=== PATIENT | male | born 1970 | race Caucasian/White ===

== ENCOUNTER 2019-04-29 22:12 | Emergency (ER) | payer OTHER ==
[2019-04-29] MEDS ORDERED: IBUPROFEN 400 MG TAB ONE (22:54)
[2019-04-29] MEDS ORDERED: IBUPROFEN 200 MG TAB PO ONE (22:54)
--- NOTE | 2019-04-29 22:56 | ER ---
Nurse's Notes [facility] Name: Juan Smith Jr Age: 48 yrs Sex: Male : 1970 Arrival Date: 04/29/2019 Time: 22:21 Bed 15 Private MD: Diagnosis: Pain in left wrist Presentation: 04/29 22:30 Presenting complaint: Patient states: Pain to left wrist that began at 1200 today; lp1 Denies any trauma to wrist; Hx of surgery to left wrist 3 years ago; Patient with splint that he applied [employer]. Transition of care: patient was not received from another setting of care. Onset of symptoms was April 29, 2019 at 12:00. Risk Assessment: Do you want to hurt yourself or someone else? Patient reports no desire to harm self or others. Initial Sepsis Screen: Does the patient meet any 2 criteria? No. Patient's initial sepsis screen is negative. Does the patient have a suspected source of infection? No. Patient's initial sepsis screen is negative. Care prior to arrival: None. 22:30 Method Of Arrival: Ambulatory lp1 22:30 Acuity: NIKOS 4 lp1 Triage Assessment: 22:30 General: Appears in no apparent distress. uncomfortable, Behavior is calm, cooperative, rr5 appropriate for age. Historical: - Allergies: 22:33 No Known Allergies; lp1 - Home Meds: 22:33 Unable to obtain [Active]; lp1 - PMHx: 22:33 Hypertension; lp1 - PSHx: 22:33 wrist surgery; lp1 - Immunization history:: Adult Immunizations up to date. - Social history:: Smoking status: Patient/guardian denies using tobacco. - Ebola Screening: : No symptoms or risks identified at this time. - Family history:: not pertinent. Screenin:30 Abuse screen: Denies threats or abuse. Denies injuries from another. Nutritional rr5 screening: No deficits noted. Tuberculosis screening: No symptoms or risk factors identified. Fall Risk None identified. Total Soliman Fall Scale indicates No Risk (0-24 pts). Assessment: 22:30 General: Appears in no apparent distress. uncomfortable, Behavior is calm, cooperative, rr5 appropriate for age. 22:30 Pain: Complains of pain in left wrist Pain does not radiate. Pain currently is 10 out rr5 of 10 on a pain scale. Quality of pain is described as aching, Pain began gradually, Is intermittent. Neuro: Level of Consciousness is awake, alert, obeys commands, Oriented to person, place, time, situation, Appropriate for age. Cardiovascular: Capillary refill < 3 seconds Patient's skin is warm and dry. Respiratory: Airway is patent Respiratory effort is even, unlabored, Respiratory pattern is regular, symmetrical. GI: No signs and/or symptoms were reported involving the gastrointestinal system. : No signs and/or symptoms were reported regarding the genitourinary system. EENT: No signs and/or symptoms were reported regarding the EENT system. Derm: Skin is intact, Skin temperature is warm. Musculoskeletal: Circulation, motion, and sensation intact. Capillary refill < 3 seconds, Reports pain in left wrist. 23:30 Reassessment: Patient appears in no apparent distress at this time. Patient is alert, rr5 oriented x 3, equal unlabored respirations, skin warm/dry/pink. discharge instruction given and explained without complaints made. Patient states feeling better. Patient states symptoms have improved. Vital Signs: 22:33 BP 142 / 95; Pulse 95; Resp 18; Temp 98.1(TE); Pulse Ox 100% on R/A; Weight 99.79 kg; lp1 Height 5 ft. 8 in. (172.72 cm); Pain 10/10; 23:25 BP 132 / 70; Pulse 90; Resp 17; Pulse Ox 99% on R/A; rr5 22:33 Body Mass Index 33.45 (99.79 kg, 172.72 cm) lp1 ED Course: 22:21 Patient arrived in ED. es 22:32 Triage completed. lp1 22:32 Arm band placed on left wrist. lp1 22:38 Richmond Gallegos MD is Attending Physician. mir 22:45 Ice pack to injury. Verbal reassurance given. Pulse ox on. NIBP on. jp3 22:45 Bed in low position. Call light in reach. Side rails up X 1. jp3 22:52 Todd Santillan, SUSAN is Primary Nurse. rr5 22:57 Wrist Left (3 View) XRAY In Process Unspecified. EDMS 23:17 Velcro wrist splint applied to left wrist. jp3 23:30 No provider procedures requiring assistance completed. Patient did not have IV access rr5 during this emergency room visit. Administered Medications: 23:04 Drug: Motrin 600 mg Route: PO; rr5 23:30 Follow up: Response: No adverse reaction rr5 Outcome: 22:55 Discharge ordered by MD. hester 23:30 Discharged to home ambulatory. rr5 23:30 Condition: stable 23:30 Discharge instructions given to patient, Instructed on discharge instructions, follow up and referral plans. medication usage, Demonstrated understanding of instructions, follow-up care, medications, Prescriptions given X 2. 23:33 Patient left the ED. rr5 Signatures: Dispatcher [employer] Richmond Rodriguez MD MD cha Salyer, Edna es Pena, Laura, RN RN lp1 Wally Tee jp3 Todd Santillan, RN RN rr5
--- NOTE | 2019-04-29 22:56 | EDPHYS ---
Physician Documentation [facility] Name: Juan Smith Jr Age: 48 yrs Sex: Male : 1970 Arrival Date: 04/29/2019 Time: 22:21 Bed 15 Private MD: ED Physician Richmond Gallegos HPI: 04/29 22:49 This 48 yrs old Male presents to ER via Ambulatory with complaints of Wrist mir Pain. 22:49 The patient or guardian reports decreased range of motion, pain. The complaints affect mir the left wrist diffusely. Context: The problem was sustained outdoors. Onset: The symptoms/episode began/occurred 3 year(s) ago. Modifying factors: The symptoms are alleviated by elevation, holding still, ice/coldpack to affected area, the symptoms are aggravated by movement. Associated signs and symptoms: The patient has no apparent associated signs or symptoms. The patient has experienced similar episodes in the past, several times. Historical: - Allergies: 22:33 No Known Allergies; lp1 - Home Meds: 22:33 Unable to obtain [Active]; lp1 - PMHx: 22:33 Hypertension; lp1 - PSHx: 22:33 wrist surgery; lp1 - Immunization history:: Adult Immunizations up to date. - Social history:: Smoking status: Patient/guardian denies using tobacco. - Ebola Screening: : No symptoms or risks identified at this time. - Family history:: not pertinent. ROS: 22:49 Constitutional: Negative for fever, chills, and weight loss, Eyes: Negative for injury, mir pain, redness, and discharge, ENT: Negative for injury, pain, and discharge, Neck: Negative for injury, pain, and swelling, Cardiovascular: Negative for chest pain, palpitations, and edema, Respiratory: Negative for shortness of breath, cough, wheezing, and pleuritic chest pain, Abdomen/GI: Negative for abdominal pain, nausea, vomiting, diarrhea, and constipation, Back: Negative for injury and pain, : Negative for injury, bleeding, discharge, and swelling, Skin: Negative for injury, rash, and discoloration, Neuro: Negative for headache, weakness, numbness, tingling, and seizure, Psych: Negative for depression, anxiety, suicide ideation, homicidal ideation, and hallucinations, Allergy/Immunology: Negative for hives, rash, and allergies, Endocrine: Negative for neck swelling, polydipsia, polyuria, polyphagia, and marked weight changes, Hematologic/Lymphatic: Negative for swollen nodes, abnormal bleeding, and unusual bruising. 22:49 MS/extremity: Positive for decreased range of motion, pain, of the left wrist. Exam: 22:49 Constitutional: This is a well developed, well nourished patient who is awake, alert, mir and in no acute distress. Head/Face: Normocephalic, atraumatic. Eyes: Pupils equal round and reactive to light, extra-ocular motions intact. Lids and lashes normal. Conjunctiva and sclera are non-icteric and not injected. Cornea within normal limits. Periorbital areas with no swelling, redness, or edema. ENT: Nares patent. No nasal discharge, no septal abnormalities noted. Tympanic membranes are normal and external auditory canals are clear. Oropharynx with no redness, swelling, or masses, exudates, or evidence of obstruction, uvula midline. Mucous membranes moist. Neck: Trachea midline, no thyromegaly or masses palpated, and no cervical lymphadenopathy. Supple, full range of motion without nuchal rigidity, or vertebral point tenderness. No Meningismus. Chest/axilla: Normal chest wall appearance and motion. Nontender with no deformity. No lesions are appreciated. Cardiovascular: Regular rate and rhythm with a normal S1 and S2. No gallops, murmurs, or rubs. Normal PMI, no JVD. No pulse deficits. Respiratory: Lungs have equal breath sounds bilaterally, clear to auscultation and percussion. No rales, rhonchi or wheezes noted. No increased work of breathing, no retractions or nasal flaring. Abdomen/GI: Soft, non-tender, with normal bowel sounds. No distension or tympany. No guarding or rebound. No evidence of tenderness throughout. Back: No spinal tenderness. No costovertebral tenderness. Full range of motion. Skin: Warm, dry with normal turgor. Normal color with no rashes, no lesions, and no evidence of cellulitis. Neuro: Awake and alert, GCS 15, oriented to person, place, time, and situation. Cranial nerves II-XII grossly intact. Motor strength 5/5 in all extremities. Sensory grossly intact. Cerebellar exam normal. Normal gait. Psych: Awake, alert, with orientation to person, place and time. Behavior, mood, and affect are within normal limits. 22:49 Musculoskeletal/extremity: Extremities: grossly normal except: noted in the dorsal aspect of left wrist and palmar aspect of left wrist: decreased ROM, pain. Vital Signs: 22:33 BP 142 / 95; Pulse 95; Resp 18; Temp 98.1(TE); Pulse Ox 100% on R/A; Weight 99.79 kg; lp1 Height 5 ft. 8 in. (172.72 cm); Pain 10/10; 23:25 BP 132 / 70; Pulse 90; Resp 17; Pulse Ox 99% on R/A; rr5 22:33 Body Mass Index 33.45 (99.79 kg, 172.72 cm) lp1 MDM: 22:38 Patient medically screened. [facility] 22:49 Data reviewed: vital signs, nurses notes, radiologic studies, plain films. [facility] 04/29 22:49 Order name: Wrist Left (3 View) XRAY [facility] 04/29 22:49 Order name: Splint - Wrist: cock up; Complete Time: 23:16 [facility] 04/29 22:49 Order name: Ice pack; Complete Time: 23:16 [facility] Administered Medications: 23:04 Drug: Motrin 600 mg Route: PO; rr5 23:30 Follow up: Response: No adverse reaction rr5 Disposition: 04/29/19 22:55 Discharged to Home. Impression: Pain in left wrist. - Condition is Stable. - Discharge Instructions: Musculoskeletal Pain, Wrist Pain, Wrist Pain, [id number]. - Prescriptions for Ibuprofen 600 mg Oral Tablet - take 1 tablet by ORAL route every 6 hours As needed take with food; 21 tablet. Tylenol- Codeine #3 300-30 mg Oral Tablet - take 2 tablets by ORAL route every 6 hours As needed; 20 tablet. - Medication Reconciliation Form, Thank You Letter, Antibiotic Education, Prescription Opioid Use form. - Follow up: Private Physician; When: 2 - 3 days; Reason: Recheck today's complaints, Continuance of care, Re-evaluation by your physician. - Problem is new. - Symptoms have improved. Signatures: Dispatcher [employer] Richmond Rodriguez MD MD cha Pena, Laura RN RN lp1 Todd Santillan RN RN rr5 Corrections: (The following items were deleted from the chart) 23:33 22:55 04/29/2019 22:55 Discharged to Home. Impression: Pain in left wrist. Condition is rr5 Stable. Forms are Medication Reconciliation Form, Thank You Letter, Antibiotic Education, Prescription Opioid Use. Follow up: Private Physician; When: 2 - 3 days; Reason: Recheck today's complaints, Continuance of care, Re-evaluation by your physician. Problem is new. Symptoms have improved. mir
--- NOTE | 2019-04-30 12:42 | RAD REPORT ---
EXAM DESCRIPTION: RAD - Wrist Left 3 View - 04/29/2019 10:59 pm CLINICAL HISTORY: Nontraumatic left wrist pain, history of wrist surgery 3 years earlier COMPARISON: None. FINDINGS: No fractures identified. No dislocation or periosteal reaction. Postsurgical changes are n oted at the wrist. Hardware is present fusing the lunate to the hamate bone. There is a lucency aroun d the stems of the fixation hardware. Bony union appears to be complete but this is not definitive. T he lucency around the fixation stems could indicate there may be some motion in an incomplete bony un ion. Scaphoid appears to be resected. Small bony densities are present at the scaphoid surgical bed. Degenerative changes are mild. No foreign body or other soft tissue abnormality. IMPRESSION: No fracture or acute finding seen. Postsurgical changes are present as detailed. An acute finding is not suspected. There is no comparis on available. The lucency around the fixation hardware stems could indicate some degree of motion. It is possible the patient has an incomplete or fibrous union across the lunate -hamate junction.
== END 2019-04-29 23:33 | disposition home or self-care (01) ==
LOC: ER 22:12
DX: M25.532 Pain in left wrist (principal); I10 Essential (primary) hypertension
CPT/HCPCS: 99284

== ENCOUNTER 2021-05-12 19:54 | Inpatient (IN) | payer OTHER ==
--- OUTSIDE RECORDS SUMMARY | 2021-05-12 19:57 | XMS REPORT | Continuity of Care Document ---
:1970 Author Organization [facility] t Address [address] [place] [address] Care Team Providers Name Role Phone Linsey NIKE ATHLETE Primary Care Physician Gabi NIKE ATHLETE Attending Clinician Payers Payer Name Policy Type Policy Number Effective Date Expiration Date S ciro [employer] OF [id number] 2016 Universit y of [id number]/ 00:00:00 [facility] edical [id number]/2015-[id number] Branch [phone] [place] [id number] [facility] [id number] 2020 Univers ity of - MANAGED 00:00:00 [place] [facility] MEDICAREWELLMED/U Branch HC DUAL COMP HMO D [id number]/09/28 021-PresentMedica re Adv HMO Problems Condition Condition Condition Status Onset Resolution Last Treating Co mments Source Name Details Category Date Date Treatment Clinician Date Essential Essential Disease Active Uni vers hypertensi hypertensi 4-27 it y of on on 00:00: [place] 00 Medical Branch Gastroesop Gastroesop Disease Active U nivers hageal hageal 4-27 ity of reflux reflux 00:00: [place] disease disease 00 Medical without without Branch esophagiti esophagiti s s Decreased Decreased Disease Active Uni vers range of range of 9-11 [place] motion of motion of [place] wrist 00 [place] [facility] Stiffness Stiffness Disease Active Uni vers of finger of finger 9-11 ity of joint of joint of 00:00: [place] left hand left hand 00 Medi peña Branch Swelling Swelling Disease Active Unive rs of left of left 06-07 ity of hand hand 00:00: Medical Branch Pain in Pain in Disease Active Univers left wrist left wrist 06-07 it y of 00:00: [facility] Branch Obesity Obesity Disease Active Univers (BMI (BMI 7-04 ity of 30-39.9) 30-39.9) 00:00: Medical Branch Allergies, Adverse Reactions, Alerts This patient has no known allergies or adverse reactions. Social History Social Habit Start Date Stop Date Quantity Comments Source Exposure to Not sure [facility] SARS-CoV-2 (event) [facility] Cigarettes smoked 2021-01-21 2021-01-21 Univers ity of current (pack per 00:00:00 00:00:00 [place] ) - Reported Branch Tobacco use and 2021-01-21 2021-01-21 Former user Universi ty of exposure 00:00:00 00:00:00 [facility] Alcohol intake 2021-01-21 2021-01-21 Ex-drinker [facility] 00:00:00 00:00:00 (finding) [facility] History of tobacco 2016-03-08 User of Univer sity of use 00:00:00 smokeless [facility] [place] tobacco Mobile Sex Ass[birth year] At [birth year] Universit y of 00:00:00 00:00:00 [facility] Smoking Status Start Date Stop Date Source Former smoker 2021-01-21 00:00:00 2021-01-21 00:00:00 Universi ty of [facility] Medications Ordered Filled Start Stop Current Ordering Indication Dosage Frequency Signature Comments Components Source Medication Medication Date Date Medication? Clinician (SIG) Name Name amLODIPine Yes Essential 2.5mg Take 1 Univers 2.5 mg 01-30 hypertensio tablet by i ty of tablet 00:00: n mouth 00 daily. Medical Branch pantoprazol Yes Gastroesoph 40mg Take 1 Univers e 40 mg EC 01-30 ageal tablet by ity of tablet 00:00: reflux mouth 00 disease daily. Medical without Branch esophagitis valsartan Yes Essential 320mg Take 1 Univers 320 mg 01-30 hypertensio tablet by i ty of tablet 00:00: n mouth [place] 00 daily. Medical Branch amLODIPine Yes Essential 2.5mg Take 1 Univers 2.5 mg 5- hypertensio tablet by i ty of tablet 00:00: n mouth [place] 00 daily. Medical Branch pantoprazol Yes Gastroesoph 40mg Take 1 Univers e 40 mg EC - ageal tablet by ity of tablet 00:00: reflux mouth [place] 00 disease daily. Medical without Branch esophagitis valsartan Yes Essential 320mg Take 1 Univers 320 mg 5- hypertensio tablet by i ty of tablet 00:00: n mouth [place] 00 daily. Medical Branch amLODIPine 2020- No Essential 2.5mg Take 1 Univers 2.5 mg 01-23- hypertensio tablet by ity of tablet 00:00: 00:00 n mouth [place] 00 :00 daily. Medical Branch pantoprazol 2020- No Gastroesoph 40mg Take 1 Univers e 40 mg EC 01-23 ageal tablet by it y of tablet 00:00: 00:00 reflux mouth [place] 00 :00 disease daily. Medical without Branch esophagitis valsartan 2020- No Essential 320mg Take 1 Univers 320 mg 01-23- hypertensio tablet by ity of tablet 00:00: 00:00 n mouth [place] 00 :00 daily. Medical Branch amLODIPine 2020- No Essential 2.5mg Take 1 Univers 2.5 mg 01-23- hypertensio tablet by ity of tablet 00:00: 00:00 n mouth [place] 00 :00 daily. Medical Branch pantoprazol 2020- No Gastroesoph 40mg Take 1 Univers e 40 mg EC 01-23- ageal tablet by it y of tablet 00:00: 00:00 reflux mouth [place] 00 :00 disease daily. Medical without Branch esophagitis valsartan 2020- No Essential 320mg Take 1 Univers 320 mg 01-23- hypertensio tablet by ity of tablet 00:00: 00:00 n mouth [place] 00 :00 daily. Medical Branch PREVIDENT Yes Univers 5000 PLUS 4- ity of 1.1 % Crea 00:00: [place] 00 Medical Branch PREVIDENT Yes Univers 5000 PLUS 4-02 ity of 1.1 % Crea 00:00: [place] 00 Medical Branch Immunizations Ordered Filled Immunization Date Status Comments [facility] e Immunization Name Name TDAP 2020-02-26 Completed University of 00:00:00 [place] [facility] TDAP 2020-02-26 Completed University of 00:00:00 [place] [facility] Procedures This patient has no known procedures. Plan of Care Planned Activity Planned Date Details Comments Source Future Scheduled 2030-02-25 DTaP,Tdap,and Td [facility] [place] Test 00:00:00 Vaccines (2 - Td) Medical Br anch [code = DTaP,Tdap,and Td Vaccines (2 - Td)] Future Scheduled 2030-02-25 DTaP,Tdap,and Td [facility] [place] Test 00:00:00 Vaccines (2 - Td) Medical Br anch [code = DTaP,Tdap,and Td Vaccines (2 - Td)] Future Scheduled 2022 Screening for [facility] Test 00:00:00 malignant neoplasm Medical B ranch of colon (procedure) [code = 825388977] Future Scheduled 2022 Screening for [facility] Test 00:00:00 malignant neoplasm Medical B ranch of colon (procedure) [code = [id number]] Future Scheduled 2022-01-21 Depression screening [facility] [place] Test 00:00:00 (procedure) [code = Medical Branch [id number]] Future Scheduled 2022-01-21 Depression screening Uni versity [facility] Test 00:00:00 (procedure) [code = Medical Branch [id number]] Future Scheduled 2021-05-28 INFLUENZA VACCINE [facility] [place] Test 00:00:00 (Season Ended) [code Medical Branch = INFLUENZA VACCINE (Season Ended)] Future Scheduled 2021-05-28 INFLUENZA VACCINE [facility] [place] Test 00:00:00 (Season Ended) [code Medical Branch = INFLUENZA VACCINE (Season Ended)] Future Scheduled 1990 Hepatitis C [facility] Test 00:00:00 screening Medical Branch (procedure) [code = [id number]] Future Scheduled 1990 Hepatitis C [facility] Test 00:00:00 screening Medical Branch (procedure) [code = [id number]] Future Scheduled 1988 SARS-CoV-2 [facility] Test 00:00:00 (COVID-19) Vaccine Medical B ranch (1) [code = SARS-CoV-2 (COVID-19) Vaccine (1)] Future Scheduled 1988 SARS-CoV-2 [facility] Test 00:00:00 (COVID-19) Vaccine Medical B ranch (1) [code = SARS-CoV-2 (COVID-19) Vaccine (1)] Encounters Start End Encounter Admission Attending Care Care Encounter Source Date/Time Date/Time Type Type Clinicians Facility Department ID 2021-01-30 2021-01-30 [facility] [id number] 00:00:00 00:00:00 [facility] [id number] [place] [phone] [address] [address] Results This patient has no known results.
[2021-05-12 21:06] LABS: Absolute Lymphocytes (CBC) 1.4 K/uL (0.7-4.9); Basophils % 0.5 % (0-1.3); Hematocrit 47.8 % (39.6-49.0); Lymphocytes % 8.8 % (15.3-44.8); MPV 9.7 fL (7.6-11.3); RBC Red Blood Cell Count 5.09 M/uL (4.33-5.43)
[2021-05-12] MEDS ORDERED: ONDANSETRON 4 MG (ODT) TAB ONE (21:12)
[2021-05-12 21:29] LABS: Albumin 3.9 g/dL (3.4-5.0); Bilirubin Direct 0.3 mg/dL (0-0.2); Bilirubin Total 1.3 mg/dL (0.2-1.0); Protein, Total 8.1 g/dL (6.4-8.2)
--- NOTE | 2021-05-12 22:02 | RAD REPORT ---
EXAM DESCRIPTION: CT - Abdomen Pelvis W Contrast - 05/12/2021 9:50 pm CLINICAL HISTORY: ABD PAIN COMPARISON: No comparisons TECHNIQUE: Biphasic, helical CT imaging of the abdomen and pelvis was performed following 100 ml non -ionic IV contrast. No oral contrast administered. All CT scans are performed using dose optimization technique as appropriate and may include automated exposure control or mA/KV adjustment according to patient size. FINDINGS: No suspicious findings in the lung bases. The liver, spleen, and pancreas show no focal findings. Mild diffuse fatty infiltration of the liver is present. No portal vein abnormality. No biliary tree dilatation. Gallbladder is distended. There a re numerous gallstones present. Gallbladder wall appears thickened and edematous. Trace amount of per icholecystic fluid is seen. Symmetric renal function is seen with no hydronephrosis or suspicious renal mass. No pyelonephritis o r acute parenchymal process. Bladder is contracted limiting assessment. No adrenal abnormalities. No dilated bowel loops or bowel wall thickening. Appendix is normal. No active GI process seen. No fr ee air, free fluid or inflammatory stranding. No mass or bulky lymphadenopathy. Fat extends into the origin of each inguinal canal. No suspicious bony findings. IMPRESSION: Multi stone cholelithiasis within a distended but nondilated gallbladder. Gallbladder wa ll edema and trace pericholecystic are present. No biliary tree abnormality. Mild diffuse fatty infiltration of the liver.
[2021-05-12 23:08] LABS: Urine Blood Trace-intact (Negative); Urine Glucose Negative (Negative); Urine Protein 1+ (Negative); Urine Specific Gravity >=1.030 (1.005-1.030); Urine pH 5.5 (5.0-7.0)
[2021-05-12] MEDS ORDERED: MORPHINE 4 MG/ML SYR ONE (23:41)
--- NOTE | 2021-05-13 00:37 | EDPHYS ---
Physician Documentation [facility] Name: Juan Smith Jr Age: 50 yrs Sex: Male : 1970 Arrival Date: 05/12/2021 Time: 20:01 Bed 18 Private MD: ED Physician Richmond Gallegos HPI: 05/12 23:32 This 50 yrs old Male presents to ER via Wheelchair with complaints of mir Abdominal Pain, Vomiting. 23:32 The patient presents to the emergency department with nausea, vomiting, that is mir intermittent. Onset: The symptoms/episode began/occurred yesterday. Historical: - Allergies: 20:43 No Known Allergies; bb - Home Meds: 20:43 pantoprazole 40 mg oral TbEC 1 tab once daily [Active]; amlodipine 2.5 mg tab 1 tab bb once daily [Active]; valsartan 320 mg oral tab 1 tab once daily [Active]; - PMHx: 20:43 Hypertension; GERD; bb - Immunization history:: Adult Immunizations up to date, Client reports having NOT received the Covid vaccine. - Social history:: Smoking status: Reported history of juuling and/or vaping. ROS: 23:33 Constitutional: Negative for fever, chills, and weight loss, Eyes: Negative for injury, mir pain, redness, and discharge, ENT: Negative for injury, pain, and discharge, Neck: Negative for injury, pain, and swelling, Cardiovascular: Negative for chest pain, palpitations, and edema, Respiratory: Negative for shortness of breath, cough, wheezing, and pleuritic chest pain, Back: Negative for injury and pain, : Negative for injury, bleeding, discharge, and swelling, MS/Extremity: Negative for injury and deformity, Skin: Negative for injury, rash, and discoloration, Neuro: Negative for headache, weakness, numbness, tingling, and seizure, Psych: Negative for depression, anxiety, suicide ideation, homicidal ideation, and hallucinations, Allergy/Immunology: Negative for hives, rash, and allergies, Endocrine: Negative for neck swelling, polydipsia, polyuria, polyphagia, and marked weight changes, Hematologic/Lymphatic: Negative for swollen nodes, abnormal bleeding, and unusual bruising. 23:33 Abdomen/GI: Positive for abdominal pain, nausea and vomiting, of the right upper quadrant and left upper quadrant. Exam: 23:33 Constitutional: This is a well developed, well nourished patient who is awake, alert, mir and in no acute distress. Head/Face: Normocephalic, atraumatic. Eyes: Pupils equal round and reactive to light, extra-ocular motions intact. Lids and lashes normal. Conjunctiva and sclera are non-icteric and not injected. Cornea within normal limits. Periorbital areas with no swelling, redness, or edema. ENT: Nares patent. No nasal discharge, no septal abnormalities noted. Tympanic membranes are normal and external auditory canals are clear. Oropharynx with no redness, swelling, or masses, exudates, or evidence of obstruction, uvula midline. Mucous membranes moist. Neck: Trachea midline, no thyromegaly or masses palpated, and no cervical lymphadenopathy. Supple, full range of motion without nuchal rigidity, or vertebral point tenderness. No Meningismus. Chest/axilla: Normal chest wall appearance and motion. Nontender with no deformity. No lesions are appreciated. Cardiovascular: Regular rate and rhythm with a normal S1 and S2. No gallops, murmurs, or rubs. Normal PMI, no JVD. No pulse deficits. Respiratory: Lungs have equal breath sounds bilaterally, clear to auscultation and percussion. No rales, rhonchi or wheezes noted. No increased work of breathing, no retractions or nasal flaring. Back: No spinal tenderness. No costovertebral tenderness. Full range of motion. Male : Normal genitalia with no discharge or lesions. Skin: Warm, dry with normal turgor. Normal color with no rashes, no lesions, and no evidence of cellulitis. MS/ Extremity: Pulses equal, no cyanosis. Neurovascular intact. Full, normal range of motion. Neuro: Awake and alert, GCS 15, oriented to person, place, time, and situation. Cranial nerves II-XII grossly intact. Motor strength 5/5 in all extremities. Sensory grossly intact. Cerebellar exam normal. Normal gait. Psych: Awake, alert, with orientation to person, place and time. Behavior, mood, and affect are within normal limits. 23:33 Abdomen/GI: Inspection: distension, that is mild, Bowel sounds: normal, Palpation: moderate abdominal tenderness, in the right upper quadrant and left upper quadrant, Liver: no appreciated palpable abnormalities, Hernia: not appreciated. Vital Signs: 20:39 BP 123 / 86; Pulse 100; Resp 18 S; Temp 97.9(O); Pulse Ox 97% on R/A; Weight 90.72 kg bb (R); Height 5 ft. 8 in. (172.72 cm) (R); Pain 10/10; 05/13 01:32 BP 141 / 94; Pulse 84; Resp 18; Temp 98.2; Pulse Ox 96% ; Pain 6/10; ms4 05/12 20:39 Body Mass Index 30.41 (90.72 kg, 172.72 cm) bb MDM: 05/12 23:19 Patient medically screened. [facility] 23:34 Data reviewed: vital signs, nurses notes, lab test result(s), EKG, radiologic studies, [facility] CT scan, plain films. 05/12 20:45 Order name: Basic Metabolic Panel; Complete Time: 21:31 05/12 20:45 Order name: CBC with Diff; Complete Time: 21:11 05/12 20:45 Order name: Hepatic Function; Complete Time: 21:31 05/12 20:45 Order name: Lipase; Complete Time: 21:31 05/12 23:08 Order name: Urine Dipstick-Ancillary; Complete Time: 23:31 [facility] 05/12 23:39 Order name: COVID-19 : Document "Date of Symptom Onset" if Symptomatic. [facility] 05/12 21:11 Order name: CT Abd/Pelvis - IV Contrast Only kb 05/13 02:24 Order name: SARS-COV-2 RT PCR [facility] 05/13 05:08 Order name: CBC with Automated Diff [facility] 05/13 05:15 Order name: Comprehensive Metabolic Panel [facility] 05/13 05:33 Order name: Manual Differential [facility] 05/14 03:02 Order name: CBC with Automated Diff [facility] 05/14 03:17 Order name: Comprehensive Metabolic Panel [facility] 05/12 20:45 Order name: IV Saline Lock; Complete Time: 21:34 05/12 20:45 Order name: Labs collected and sent; Complete Time: 21:34 05/12 22:04 Order name: CT; Complete Time: 22:05 [facility] 05/12 22:36 Order name: US Abdomen Limited mw2 05/13 08:27 Order name: MRI EDMS Administered Medications: 20:54 Drug: Zofran (Ondansetron) 4 mg Route: PO; bb 23:10 Follow up: Response: No adverse reaction bb 23:21 Drug: morphine 4 mg Route: IVP; Site: right antecubital; bb 05/13 01:31 Follow up: Response: No adverse reaction ms4 00:36 Drug: Zosyn (piperacillin-tazobactam) 3.375 grams Route: IVPB; Infused Over: 60 mins; ms4 Site: right antecubital; 00:53 Drug: morphine 4 mg Route: IVP; Site: left antecubital; ms4 01:31 Follow up: Response: No adverse reaction ms4 01:30 Drug: Pepcid (famotidine) 20 mg Route: IVP; Site: left antecubital; ms4 01:30 Follow up: Response: No adverse reaction ms4 Disposition Summary: 05/13/21 00:36 Hospitalization Ordered Hospitalization Status: Inpatient Admission mir Provider: Liu Marquez imr Condition: Stable mir Problem: new mir Symptoms: have improved mir Bed/Room Type: Standard mir Location: Telemetry/MedSurg (Inpatient)(05/14/21 10:27) dw Room Assignment: 213(05/14/21 10:27) dw Diagnosis - Abdominal tenderness mir - Elevated white blood cell count mir - Acute cholecystitis mir - Other cholelithiasis with obstruction mir Forms: - Medication Reconciliation Form mir - SBAR form mir Signatures: Dispatcher [employer] EDNC Destinee Duenas FNP-C FNP-Ckb Webb, Martha, RN RN mw Woody, Diana, RN RN dw Anderson, Corey, MD MD cha Ballard, Brenda, RN RN Adrienne Romo RN RN ms4 Corrections: (The following items were deleted from the chart) 01:27 05/12 23:39 CORONAVIRUS ordered. EDNC EDNC 05/13 02:36 00:36 Telemetry/MedSurg (Inpatient) [facility] 02:36 00:36 mir 05/14 10:27 05/13 02:36 BR ER HOLD [facility] 05/14 10:27 05/13 02:36 ERHOLD- [facility]
--- NOTE | 2021-05-13 00:37 | ER ---
Nurse's Notes [facility] Name: Juan Smith Jr Age: 50 yrs Sex: Male : 1970 Arrival Date: 05/12/2021 Time: 20:01 Bed 18 Private MD: Diagnosis: Abdominal tenderness;Elevated white blood cell count;Acute cholecystitis;Other cholelithiasis with obstruction Presentation: 05/12 20:39 Chief complaint: Patient states: he started vomiting last night and today also having bb abdominal pain and back pain. Coronavirus screen: At this time, the client does not indicate any symptoms associated with coronavirus-19. Ebola Screen: No symptoms or risks identified at this time. Initial Sepsis Screen: Does the patient meet any 2 criteria? No. Patient's initial sepsis screen is negative. Does the patient have a suspected source of infection? No. Patient's initial sepsis screen is negative. Risk Assessment: Do you want to hurt yourself or someone else? Patient reports no desire to harm self or others. Onset of symptoms was May 11, 2021. 20:39 Method Of Arrival: Wheelchair bb 20:39 Acuity: NIKOS 3 bb Triage Assessment: 20:43 General: Appears in no apparent distress. uncomfortable, Behavior is calm, cooperative. bb Pain: Complains of pain in abdomen Pain currently is 10 out of 10 on a pain scale. Neuro: Level of Consciousness is awake, alert, obeys commands, Oriented to person, place, time, situation. Cardiovascular: Capillary refill < 3 seconds Patient's skin is warm and dry. Respiratory: Airway is patent Respiratory effort is even, unlabored, Respiratory pattern is regular. GI: Abdomen is round Reports lower abdominal pain, vomiting. Derm: Skin is pink, warm \T\ dry. Musculoskeletal: Circulation, motion, and sensation intact. Historical: - Allergies: 20:43 No Known Allergies; bb - Home Meds: 20:43 pantoprazole 40 mg oral TbEC 1 tab once daily [Active]; amlodipine 2.5 mg tab 1 tab bb once daily [Active]; valsartan 320 mg oral tab 1 tab once daily [Active]; - PMHx: 20:43 Hypertension; GERD; bb - Immunization history:: Adult Immunizations up to date, Client reports having NOT received the Covid vaccine. - Social history:: Smoking status: Reported history of juuling and/or vaping. Screenin/17 01:32 Abuse screen: Denies threats or abuse. Denies injuries from another. Nutritional ms4 screening: No deficits noted. Tuberculosis screening: No symptoms or risk factors identified. Fall Risk None identified. Assessment: 01:31 Pain: Complains of pain in abdomen. Neuro: No deficits noted. Cardiovascular: No ms4 deficits noted. Respiratory: No deficits noted. GI: Reports upper abdominal pain, nausea, vomiting. Vital Signs: 05/12 20:39 BP 123 / 86; Pulse 100; Resp 18 S; Temp 97.9(O); Pulse Ox 97% on R/A; Weight 90.72 kg bb (R); Height 5 ft. 8 in. (172.72 cm) (R); Pain 10/10; 05/13 01:32 BP 141 / 94; Pulse 84; Resp 18; Temp 98.2; Pulse Ox 96% ; Pain 6/10; ms4 05/12 20:39 Body Mass Index 30.41 (90.72 kg, 172.72 cm) bb ED Course: 05/12 20:01 Patient arrived in ED. bp1 20:10 Destinee Duenas FNP-C [facility] kb 20:10 Richmond Gallegos MD is Attending Physician. kb 20:43 Triage completed. bb 20:43 Arm band placed on Patient placed in waiting room, Patient notified of wait time. Labs bb ordered per protocol. Family accompanied patient. 22:52 US Abdomen Limited In Process Unspecified. EDMS 23:19 Richmond Gallegos MD is Attending Physician. [facility] 05/13 00:35 Liu Marquez DO is Hospitalizing Provider. [facility] 05/14 03:27 Christiana Carnes, SUSAN is Primary Nurse. bs2 Administered Medications: 05/12 20:54 Drug: Zofran (Ondansetron) 4 mg Route: PO; bb 23:10 Follow up: Response: No adverse reaction bb 23:21 Drug: morphine 4 mg Route: IVP; Site: right antecubital; bb 05/13 01:31 Follow up: Response: No adverse reaction ms4 00:36 Drug: Zosyn (piperacillin-tazobactam) 3.375 grams Route: IVPB; Infused Over: 60 mins; ms4 Site: right antecubital; 00:53 Drug: morphine 4 mg Route: IVP; Site: left antecubital; ms4 01:31 Follow up: Response: No adverse reaction ms4 01:30 Drug: Pepcid (famotidine) 20 mg Route: IVP; Site: left antecubital; ms4 01:30 Follow up: Response: No adverse reaction ms4 Outcome: 00:36 Decision to Hospitalize by Provider. mir 05/14 11:06 Patient left the ED. tr6 Signatures: Dispatcher [employer] EDDestinee Begum, CHLOE-C BEAMING MACHINE OPERATOR-Richmond Kramer MD MD cha Ballard, Brenda RN RN bb Shira Rosas Tiffany, RN RN tr6 Christiana Carnes RN RN bs2 Adrienne Coulter RN RN ms4
[2021-05-13] MEDS ORDERED: NA CHLORIDE 0.9% 100 ML ONE (00:44)
[2021-05-13] MEDS ORDERED: MORPHINE 4 MG/ML SYR ONE (00:44)
[2021-05-13] MEDS ORDERED: PIPERACIL/TAZO 3.375 GM VIAL IV ONE (00:44)
[2021-05-13] MEDS ORDERED: FAMOTIDINE 20 MG/2 ML VIAL IV ONE (01:14)
--- NOTE | 2021-05-13 01:29 | P.HP ---
Certification for Inpatient Patient admitted to: Observation With expected LOS: <2 Midnights Patient will require the following post-hospital care: None Practitioner: I am a practitioner with admitting privileges, knowledge of patient current condition, hospital course, and medical plan of care. Services: Services provided to patient in accordance with Admission requirements found in Title 42 Section 412.3 of the Code of Federal Regulations <Abhijeet García - Last Filed: 05/13/21 01:27> Patient History Date of Service: 05/13/21 Reason for admission: Acute cholecystitis History of Present Illness: 50-year-old male with history of hypertension, GERD presents emergency [place] for abdominal pain. Patient reports pain started this morning, patient evaluated the emergency department lab significant for white blood cell count 16 GFR 75 glucose [address] abdomen pelvis with multistone cholelithiasis with distended but nondilated gallbladder, gallbladder wall edema and trace pericholecystic fluid present. Ultrasound confirms this but as CBD dilatation. Case was discussed with general surgery who recommends n.p.o., antibiotics, MRCP in the morning. - Past Medical/Surgical History -: Hypertension -: GERD -: Left wrist surgery Psychosocial/ Personal History: Disabled, lives with a friend - Family History Family History: Reviewed- Non-Contributory - Social History Smoking Status: Never smoker Alcohol use: No CD- Drugs: No Caffeine use: Yes Place of Residence: Home <Abhijeet García - Last Filed: 05/13/21 01:27> Date of Service: 05/13/21 <Todd Casey - Last Filed: 05/13/21 14:53> Allergies No Known Allergies Allergy (Unverified 06/23/16 22:36) Review of Systems 10-point ROS is otherwise unremarkable Gastrointestinal: Nausea, Abdominal Pain <Abhijeet García - Last Filed: 05/13/21 01:27> Physical Examination - Physical Exam General: Alert, In no apparent distress, Oriented x3 HEENT: Atraumatic, PERRLA, Mucous membr. moist/pink, EOMI, Sclerae nonicteric Neck: Supple, 2+ carotid pulse no bruit, No LAD, Without JVD or thyroid abnormality Respiratory: Clear to auscultation bilaterally, Normal air movement Cardiovascular: Regular rate/rhythm, Normal S1 S2 Gastrointestinal: Normal bowel sounds, Tenderness (Mild epigastric tenderness) Musculoskeletal: No tenderness Integumentary: No rashes Neurological: Normal gait, Normal speech, Normal strength at 5/5 x4 extr, Normal tone, Normal affect Lymphatics: No axilla or inguinal lymphadenopathy - Studies Laboratory Data (last 24 hrs) 05/12/21 20:50: WBC 16.00 H, Hgb 16.2, Hct 47.8, Plt Count 253 05/12/21 20:50: Sodium 139, Potassium 4.0, BUN 17, Creatinine 1.05, Glucose 136 H, Total Bilirubin 1.3 H, AST 20, ALT 40, Alkaline Phosphatase 104, Lipase 60 L <Abhijeet García - Last Filed: 05/13/21 01:27> - Studies Laboratory Data (last 24 hrs) 05/13/21 04:49: Sodium 140, Potassium 4.2, BUN 16, Creatinine 0.94, Glucose 131 H, Total Bilirubin 1.3 H, AST 64 H, ALT 74, Alkaline Phosphatase 102 05/13/21 04:49: WBC 16.70 H, Hgb 15.5, Hct 45.1, Plt Count 220 05/12/21 20:50: WBC 16.00 H, Hgb 16.2, Hct 47.8, Plt Count 253 05/12/21 20:50: Sodium 139, Potassium 4.0, BUN 17, Creatinine 1.05, Glucose 136 H, Total Bilirubin 1.3 H, AST 20, ALT 40, Alkaline Phosphatase 104, Lipase 60 L <Todd Casey - Last Filed: 05/13/21 14:53> Assessment and Plan - Plan Assessment: Acute cholecystitis with dilated CBD Hypertension GERD Plan: Acute cholecystitis with dilated CBD: N.p.o., IV Zosyn, MRCP, general surgery consult. As needed pain medications/antiemetics. Appreciate further input from general surgery. Hypertension: We will need to hold medications as patient is n.p.o. at this time, will continue after this. GERD: IV Protonix. DVT PPX: SCD Code status: Full Discharge Plan: Home Plan to discharge in: 24 Hours - Advance Directives Does patient have a Living Will: No Does patient have a Durable POA for Healthcare: No - Code Status/Comfort Care Code Status Assessed: Yes (Full code) Critical Care: No Time Spent Managing Pts Care (In Minutes): 55 <Abhijeet García - Last Filed: 05/13/21 01:27> - Plan Plan of care reviewed as noted above. Agree with plan Patient seen and examined this morning. Continues with some pain in his abdomen, mild nausea. Morphine helps temporarily. General surgery consulted. MRCP done. Planned for OR tomorrow, no OR time today unfortunately <Todd Casey - Last Filed: 05/13/21 14:53>
[2021-05-13] MEDS ORDERED: SODIUM CHLORIDE 0.9% 10ML INJ IV PRN (02:26)
[2021-05-13] MEDS: NA CHLORIDE 0.9% 1,000 ML IV SCH ×3 (02:26→22:26)
[2021-05-13] MEDS: MORPHINE 2 MG/ML SYR IV PRN ×3 (03:11→12:34)
[2021-05-13] MEDS ORDERED: NA CHLORIDE 0.9% 1,000 ML ONE ×3 (03:23→23:44)
[2021-05-13] MEDS ORDERED: MORPHINE 2 MG/ML SYR ONE ×3 (03:23→12:54)
[2021-05-13 03:46] VITALS: BMI 28.5
[2021-05-13 05:01] LABS: Absolute Lymphocytes (CBC) 1.2 K/uL (0.7-4.9); Basophils % 0.6 % (0-1.3); Hematocrit 45.1 % (39.6-49.0); Lymphocytes % 6.9 % (15.3-44.8); MPV 9.7 fL (7.6-11.3); RBC Red Blood Cell Count 4.82 M/uL (4.33-5.43)
[2021-05-13 05:15] LABS: Albumin 3.7 g/dL (3.4-5.0); Bilirubin Total 1.3 mg/dL (0.2-1.0); Potassium 4.2 mmol/L (3.5-5.1); Protein, Total 7.9 g/dL (6.4-8.2)
[2021-05-13 05:33] LABS: Blood Morphology Comment NOT SEEN (NOT SEEN); Platelet Estimate ADEQ
[2021-05-13] MEDS: PANTOPRAZOLE 40 MG INJ IVP SCH (07:30)
[2021-05-13] MEDS ORDERED: PANTOPRAZOLE 40 MG INJ ONE (08:06)
[2021-05-13] MEDS ORDERED: PIPER/TAZO/NS 3.375gm 3.375 GM/100 ML BAG ONE ×2 (08:06→10:19)
--- NOTE | 2021-05-13 08:26 | RAD REPORT ---
EXAM DESCRIPTION: MRI - Cholangiogram - 05/13/2021 8:14 am CLINICAL HISTORY: Cholecystitis, Dilated CBD COMPARISON: Abdomen Exam Limited dated 05/12/2021 FINDINGS: Three-dimensional MRCP was performed using maximum intensity projection reconstruction on the same work station. No intrahepatic biliary tree dilatation is seen. The common bile duct is normal caliber without evide nce of retained stone, stricture or mass. The pancreatic duct is not pathologically dilated. Multiple stones are present in the gallbladder which appears distended. Mild pericholecystic fluid. Limited T2 sequences through the abdomen demonstrates no bulky adenopathy, significant free fluid or abscess. IMPRESSION: Cholelithiasis is seen with distended gallbladder and mild pericholecystic fluid suspici ous for acute cholecystitis. Common bile duct is normal caliber. No common duct stone seen.
[2021-05-13] MEDS: ONDANSETRON 4 MG/2 ML VIAL IV PRN ×2 (08:32→16:38)
[2021-05-13] MEDS ORDERED: BUPIVACAINE 0.5% PF 10 ML VIAL ONE (08:43)
--- NOTE | 2021-05-13 08:45 | RAD REPORT ---
EXAM DESCRIPTION: US - Abdomen Exam Limited - 05/12/2021 10:52 pm CLINICAL HISTORY: ABD PAIN COMPARISON: No comparisons FINDINGS: The gallbladder demonstrates multiple shadowing gallstones. Mild pericholecystic fluid is seen. The common bile duct is not well visualized but favored to be normal. The liver demonstrates no findings of intrahepatic biliary dilatation. IMPRESSION: Extensive cholelithiasis is noted. Mild pericholecystic fluid is seen. Acute cholecystitis is a possibility.
[2021-05-13] MEDS ORDERED: ONDANSETRON 4 MG/2 ML VIAL ONE ×2 (08:48→16:43)
[2021-05-13] MEDS: PIPER/TAZO/NS 3.375gm 3.375 GM/100 ML BAG IVPB SCH ×2 (09:00→16:48)
--- NOTE | 2021-05-13 14:00 | CON ---
Date of Consultation: 05/13/2021 Reason For Consultation: Abdominal pain. History Of Present Illness: The patient is a 50-year-old gentleman, presents to the emergency room w ith acute onset of upper abdominal pain associated with nausea, but no vomiting. Some back pain. So me belching. No heartburn. No sore throat, runny nose, cough, headaches, or dizziness. No chest pa in. Occasional fever and chills. Review of Systems: Otherwise unremarkable. Past Medical History: Significant for hypertension, GERD. Past Surgical History: Significant for left wrist surgeries. Allergies: NO ALLERGIES. Social History: He does not smoke or drink alcohol. Physical Examination: Vital Signs: His vitals are stable. Temperature is 99.0. General: He is awake, alert, and oriented x3. Head and Neck: There is no evidence of icterus. Cranial nerves 2 through 12 are grossly within norm al limits. No neck masses. No JVD. Throat clear. Neck is supple. Chest: Clear. Heart: S1, S2. Abdomen: Soft, nondistended. Positive right upper quadrant tenderness. No rebound, rigidity, or gu arding. Extremities: Adequately perfused. Nontender. Neuro: Nonfocal. Laboratory Data: White count on admission was with a left shift. His chemistry reviewed. His AST is 64. Otherwise, his ALT is normal. Alkaline phosphatase is normal. Total bilirubin was 1.3. Lipase is 60. The patient had an ultrasound of the abdomen, which shows extensive cholelithia sis. Mild pericholecystic fluid is seen. The patient also had an MRCP as the initial report stated that the common bile duct was slightly enlarged and the MRCP shows cholelithiasis seen with a distend ed gallbladder with mild pericholecystic fluid suspicious for acute cholecystitis. Common bile duct has normal caliber. No common duct stones seen. Assessment: Acute cholecystitis and cholelithiasis. Plan: Admit, n.p.o., IV fluid, IV antibiotics. Tomorrow, we will take the patient to the OR for lap choly, possible open. The patient understands the risks, benefits, and alternatives and agrees to t he procedure. /MODL Voice ID: [id number] Report ID: [id number]
[2021-05-13] MEDS: HYDROMORPHONE HCL 1 MG/ML INJ IV PRN ×2 (16:38→21:24)
[2021-05-13] MEDS ORDERED: HYDROMORPHONE HCL 1 MG/ML INJ ONE (16:43)
[2021-05-13] MEDS ORDERED: HYDROMORPHONE HCL 2 MG/ML inj ONE ×2 (21:16→23:44)
[2021-05-13] MEDS ORDERED: HYDROMORPHONE HCL 2 MG/ML inj IV ONE (23:20)
[2021-05-14] MEDS: PIPER/TAZO/NS 3.375gm 3.375 GM/100 ML BAG IVPB SCH ×3 (01:00→17:22)
[2021-05-14] MEDS: HYDROMORPHONE HCL 1 MG/ML INJ IV PRN ×4 (01:55→21:44)
[2021-05-14] MEDS ORDERED: HYDROMORPHONE HCL 2 MG/ML inj ONE ×2 (02:04→06:02)
[2021-05-14] MEDS ORDERED: PIPER/TAZO/NS 3.375gm 3.375 GM/100 ML BAG ONE (02:04)
[2021-05-14 02:58] LABS: Absolute Lymphocytes (CBC) 1.5 K/uL (0.7-4.9); Basophils % 0.4 % (0-1.3); Hematocrit 38.9 % (39.6-49.0); Lymphocytes % 8.5 % (15.3-44.8); MPV 9.7 fL (7.6-11.3); RBC Red Blood Cell Count 4.13 M/uL (4.33-5.43)
[2021-05-14 03:17] LABS: Bilirubin Total 1.7 mg/dL (0.2-1.0); Potassium 3.9 mmol/L (3.5-5.1); Protein, Total 6.9 g/dL (6.4-8.2)
[2021-05-14] MEDS ORDERED: Ringers Lactate 1,000 ML IV ONE (06:54)
[2021-05-14] MEDS ORDERED: MIDAZOLAM HCL 2 MG/2 ML INJ ONE (06:55)
[2021-05-14] MEDS ORDERED: propofoL 200 MG/20 ML VIAL IV ONE (06:55)
[2021-05-14] MEDS ORDERED: FENTANYL CITR 250 MCG/5 ML ONE (06:56)
[2021-05-14] MEDS ORDERED: dexAMETHasone 10 MG/ML VIAL ONE (06:56)
[2021-05-14] MEDS ORDERED: LIDOCAINE 2% MPF 5 ML VIAL ONE (06:56)
[2021-05-14] MEDS ORDERED: ROCURONIUM 50 MG/5 ML VIAL IV ONE (06:56)
[2021-05-14] MEDS ORDERED: ONDANSETRON 4 MG/2 ML VIAL ONE (06:56)
[2021-05-14] MEDS ORDERED: CEFOXITIN/SWI 1gm 1 GM/10 ML SYR ONE (07:02)
[2021-05-14] MEDS ORDERED: BUPIVACAINE 0.5% PF 10 ML VIAL ONE (07:16)
[2021-05-14] MEDS ORDERED: KETOROLAC 30 MG/ML INJ ONE (07:48)
[2021-05-14] MEDS: NA CHLORIDE 0.9% 1,000 ML IV SCH ×3 (08:26→21:45)
--- NOTE | 2021-05-14 08:29 | P.OP ---
Development Associate: Arturo YAN Preoperative diagnosis: Acute cholecystitis and cholelithiasis Postoperative diagnosis: same Primary procedure: Lap Yoly Anesthesia: General Estimated blood loss: min Specimen: GB Findings: as above Complications: None Drain(s): MAYONR drain Transferred to: Recovery Room Condition: Good
[2021-05-14] MEDS ORDERED: NEOSTIGMINE 1 MG/ML -5 ML ONE (08:39)
[2021-05-14] MEDS ORDERED: GLYCOPYRROLATE 0.2 MG/ML SYR ONE (08:39)
[2021-05-14] MEDS ORDERED: ONDANSETRON 4 MG/2 ML VIAL IV PRN (09:32)
[2021-05-14] MEDS: PANTOPRAZOLE 40 MG INJ IVP SCH (10:16)
[2021-05-14] MEDS ORDERED: NA CHLORIDE 0.9% 1,000 ML ONE (10:29)
[2021-05-14] MEDS ORDERED: NA CHLORIDE 0.9% 100 ML ONE (10:29)
[2021-05-14] MEDS ORDERED: PIPERACIL/TAZO 3.375 GM VIAL IV ONE (10:29)
[2021-05-14] MEDS ORDERED: PANTOPRAZOLE 40 MG INJ ONE (10:29)
--- NOTE | 2021-05-14 10:36 | OP ---
Date of Procedure: 05/14/2021 Surgeon: Marlon Bravo MD Blanket Weaver: FARRAH Hernandez. Preoperative Diagnosis: Acute cholecystitis and cholelithiasis. Postoperative Diagnosis: Acute cholecystitis and cholelithiasis. Procedure: Laparoscopic cholecystectomy. Estimated Blood Loss: Minimal. Specimen: Gallbladder. Findings: As above. Anesthesia: General. Complications: None. Disposition: The patient tolerated the procedure in stable condition, taken to Recovery in good gene ral condition. Procedure In Detail: The patient was brought to the OR and placed in supine position. General anest hesia begun. The patient was prepped and draped in usual sterile fashion. Marcaine 0.5% infiltrated locally. A 15-blade was used to make a 1 cm supraumbilical midline incision. Subcutaneous tissue d ivided. Fascia identified and divided. A #1 Vicryl stay suture was placed. Peritoneal cavity was e ntered with blunt dissection. A 12 mm trocar was placed into the peritoneal cavity under direct visi on. Pneumoperitoneum was established and then three 5 mm trocars placed, 1 in the epigastrium just t o the right of midline and 2 in the right subcostal region. Laparoscopy revealed a distended gallbla dder which was aspirated of clear bile consistent with acute cholecystitis. Wall was significantly t hickened. Gallbladder was long as well and then fundus retracted superiorly. Infundibulum identifie d and retracted inferolaterally. Cystic duct and cystic artery were clearly identified with blunt di ssection. Clips placed. Posterior divided cautery used to remove the gallbladder from the liver bed . Bleeding on the liver bed was controlled with cautery. There was oozing noted and Avitene was spr ayed into the liver bed at the end of the case, and Henrique-Guillermo drain #10 flat was placed and secur ed. After thorough irrigation of the right upper quadrant, where everything was clear and there was no evidence of any active bleeding, just minimal oozing was noted. Subsequently, all oozing and blee ding was no longer identified. No evidence of bile leak or bowel injury appreciated. Then all troca rs were removed under direct vision. Stay sutures were tied to each other to reapproximate the fasci al defect. Subcutaneous wounds irrigated. Bleeding controlled with cautery. A 3-0 chromic used to reapproximate the subcutaneous tissue, and tawanda used to close the skin and drain secured with 3-0 nylon. Sterile dressing applied. The patient awakened and taken to Recovery in good general conditi on. /MODL Voice ID: [id number] Report ID: [id number]
--- NOTE | 2021-05-14 13:44 | P.PN ---
Subjective Date of Service: 05/14/21 Chief Complaint: Acute cholecystitis Subjective: No new changes (continues with RUQ pain, scheduled for surgery today) Review of Systems 10-point ROS is otherwise unremarkable Physical Examination - Vital Signs Temperature: 99.0 F Blood Pressure: 125/82 Pulse: 98 Respirations: 18 Pulse Ox (%): 94 Assessment & Plan Physician Review Additional Text: Physical exam GEN: NAD, AAOx3 HEENT: Normal conjunctiva, sclera anicteric CV: Regular rate and rhythm, no murmur Pulmonary: Clear to auscultation bilaterally, nonlabored on room air Abdomen: Mild tenderness to palpation in the right upper quadrant MSK: no joint tenderness Problem List Acute cholecystitis with cholelithiasis Hypertension GERD Continue n.p.o., IV Zosyn, MRCP performed yesterday General surgery consulted, for lap howard today Continue pain medication/antiemetics Further management pending surgery DVT PPX: SCD Code status: Full Dispo: Anticipate DC home tomorrow Time Spent Managing Pts Care (In Minutes): 35
[2021-05-14] MEDS ORDERED: POTASSIUM CL SA 10 MEQ TAB PO ONE (17:00)
[2021-05-14] MEDS: HYDROCODONE/APAP 7.5/325 MG TAB PO PRN (17:25)
[2021-05-15] MEDS: PIPER/TAZO/NS 3.375gm 3.375 GM/100 ML BAG IVPB SCH ×3 (00:54→17:09)
[2021-05-15] MEDS: HYDROCODONE/APAP 7.5/325 MG TAB PO PRN ×3 (01:00→17:13)
[2021-05-15 06:05] LABS: Urine Appearance CLEAR (Clear); Urine Blood NEGATIVE (Negative); Urine Color DK YELLOW (Yellow); Urine Glucose NEGATIVE (Negative); Urine Protein TRACE (Negative); Urine Specific Gravity >=1.030 (1.005-1.030)
[2021-05-15 06:09] LABS: Urine Bilirubin NEGATIVE (Negative); Urine Microscopic Reflex ORDER UMIC
[2021-05-15 06:10] LABS: Absolute Lymphocytes (CBC) 1.1 K/uL (0.7-4.9); Basophils % 0.4 % (0-1.3); Hematocrit 38.9 % (39.6-49.0); Lymphocytes % 6.3 % (15.3-44.8); MPV 9.6 fL (7.6-11.3); RBC Red Blood Cell Count 4.08 M/uL (4.33-5.43)
[2021-05-15 06:17] LABS: Urine Bacteria <20 /HPF (NONE SEEN); Urine RBC <5 /HPF (NONE SEEN)
[2021-05-15 06:24] LABS: Phosphorus 2.2 mg/dL (2.5-4.9)
[2021-05-15 06:42] LABS: Magnesium 2.1 mg/dL (1.8-2.4); Potassium 4.5 mmol/L (3.5-5.1)
[2021-05-15 07:06] LABS: Blood Morphology Comment NOT SEEN (NOT SEEN); Platelet Estimate ADEQ; White Blood Cell Scan OK (OK)
[2021-05-15] MEDS: POTASS/SODIUM PHOSPHATE 1 PKT POWD.PACK PO SCH ×2 (09:15→09:40)
[2021-05-15] MEDS: PANTOPRAZOLE 40 MG INJ IVP SCH (09:16)
[2021-05-15] MEDS: NA CHLORIDE 0.9% 1,000 ML IV SCH (09:19)
--- NOTE | 2021-05-15 11:40 | PN ---
Date of Progress Note: 05/15/2021 Subjective: The patient is awake, alert. Complaining of right-sided abdominal pain. Objective: Vital Signs: Stable. He is afebrile. Abdomen: Benign. Extremities: Dressing is clean, dry, intact. Laboratory Data: White count is still elevated. Assessment: Lap cholecystectomy for acute cholecystitis and cholelithiasis. Recommendations: As the patient still has pain requiring parenteral pain management and leukocytosis , I think we should keep him another day in the hospital for IV antibiotics and parenteral pain manag ement. He encouraged ambulation and incentive spirometry. The patient is clinically improving. /MODL Voice ID: [id number] Report ID: [id number]
--- NOTE | 2021-05-15 14:17 | P.PN ---
Subjective Date of Service: 05/15/21 Chief Complaint: Acute cholecystitis Subjective: Improving (Continues with pain, tolerating clear liquid diet, ambulating, still significant leukocytosis.) Review of Systems 10-point ROS is otherwise unremarkable Physical Examination - Vital Signs Temperature: 97.9 F Blood Pressure: 119/81 Pulse: 67 Respirations: 18 Pulse Ox (%): 91 Assessment & Plan Physician Review Additional Text: Physical exam GEN: NAD, AAOx3 HEENT: Normal conjunctiva, sclera anicteric CV: Regular rate and rhythm, no murmur Pulmonary: Clear to auscultation bilaterally, nonlabored on room air Abdomen: Mild tenderness to palpation in the right upper quadrant. MAYNOR drain in place with serosanguineous output Problem List Acute cholecystitis with cholelithiasis s/p laparoscopic cholecystectomy (05/14) Hypertension GERD Status post MRCP, status post laparoscopic cholecystectomy on 05/14 Reportedly had inflamed gallbladder, MAYNOR drain placed Continues with parenteral pain medication/requirement Leukocytosis minimally improved Discussed with general surgery, will monitor and repeat labs in the a.m. DVT PPX: SCD, ambulating Code status: Full Dispo: Anticipate DC home tomorrow Time Spent Managing Pts Care (In Minutes): 40
[2021-05-15] MEDS: HYDROMORPHONE HCL 1 MG/ML INJ IV PRN (20:58)
[2021-05-15 23:56] VITALS: O2SAT 94
[2021-05-16] MEDS: NA CHLORIDE 0.9% 1,000 ML IV SCH ×2 (00:26→00:36)
[2021-05-16] MEDS: PIPER/TAZO/NS 3.375gm 3.375 GM/100 ML BAG IVPB SCH ×2 (00:35→09:42)
[2021-05-16] MEDS: HYDROMORPHONE HCL 1 MG/ML INJ IV PRN (05:00)
[2021-05-16 05:53] LABS: Absolute Lymphocytes (CBC) 2.4 K/uL (0.7-4.9); Basophils % 0.5 % (0-1.3); Hematocrit 35.8 % (39.6-49.0); Lymphocytes % 25.5 % (15.3-44.8); MPV 9.5 fL (7.6-11.3); RBC Red Blood Cell Count 3.77 M/uL (4.33-5.43)
[2021-05-16 06:17] LABS: ALT/SGPT 77 U/L (12-78); Albumin 2.5 g/dL (3.4-5.0); Alkaline Phosphatase 69 U/L (45-117); Bicarbonate 27 mmol/L (21-32); Bilirubin Direct 0.2 mg/dL (0-0.2); Bilirubin Total 0.6 mg/dL (0.2-1.0); Glucose Level 92 mg/dL (74-106); Magnesium 1.9 mg/dL (1.8-2.4); Potassium 3.6 mmol/L (3.5-5.1); Protein, Total 6.2 g/dL (6.4-8.2); Sodium Level 145 mmol/L (136-145)
[2021-05-16 06:22] LABS: AST/SGOT 36 U/L (15-37); BUN Blood Urea Nitrogen 15 mg/dL (7-18)
[2021-05-16 08:54] VITALS: BP 145/84; TEMP 97.9
[2021-05-16] MEDS: PANTOPRAZOLE 40 MG INJ IVP SCH (09:41)
[2021-05-16] MEDS: HYDROCODONE/APAP 7.5/325 MG TAB PO PRN (09:47)
--- NOTE | 2021-05-16 12:56 | PN ---
Date of Progress Note: 05/16/2021 Subjective: The patient's pain is better. He is tolerating diet, ambulating. Pain control, on p.o. pain medication. Objective: Vital stable, afebrile. MAYNOR putting out 20 cc serosanguineous fluid. Abdomen is benign. Assessment: Status post laparoscopic cholecystectomy. Recommendations: The patient cleared for surgery. For discharge, discharge instructions given. The patient will follow up with me in a week. The MAYNOR drain will be discontinued prior to discharge. /MODL Voice ID: [id number] Report ID: [id number]
--- NOTE | 2021-05-16 16:26 | P.DS ---
Admission Date: 05/13/21 Discharge Date: 05/16/21 Disposition: ROUTINE DISCHARGE Discharge Condition: GOOD Reason for Admission: Acute cholecystitis Consultations: General surgery - Dr. Bravo Procedures: CT abdomen/pelvis (05/12): FINDINGS: No suspicious findings in the lung bases. The liver, spleen, and pancreas show no focal findings. Mild diffuse fatty infiltration of the liver is present. No portal vein abnormality. No biliary tree dilatation. Gallbladder is distended. There are numerous gallstones present. Gallbladder wall appears thickened and edematous. Trace amount of pericholecystic fluid is seen. Symmetric renal function is seen with no hydronephrosis or suspicious renal mass. No pyelonephritis or acute parenchymal process. Bladder is contracted limiting assessment. No adrenal abnormalities. No dilated bowel loops or bowel wall thickening. Appendix is normal. No active GI process seen. No free air, free fluid or inflammatory stranding. No mass or bulky lymphadenopathy. Fat extends into the origin of each inguinal canal. No suspicious bony findings. IMPRESSION: Multi stone cholelithiasis within a distended but nondilated gallbladder. Gallbladder wall edema and trace pericholecystic are present. No biliary tree abnormality. Mild diffuse fatty infiltration of the liver. Abdominal ultrasound (05/12): FINDINGS: The gallbladder demonstrates multiple shadowing gallstones. Mild pericholecystic fluid is seen. The common bile duct is not well visualized but favored to be normal. The liver demonstrates no findings of intrahepatic biliary dilatation. IMPRESSION: Extensive cholelithiasis is noted. Mild pericholecystic fluid is seen. Acute cholecystitis is a possibility. MRCP (05/13): FINDINGS: Three-dimensional MRCP was performed using maximum intensity projection reconstruction on the same work station. No intrahepatic biliary tree dilatation is seen. The common bile duct is normal caliber without evidence of retained stone, stricture or mass. The pancreatic duct is not pathologically dilated. Multiple stones are present in the gallbladder which appears distended. Mild pericholecystic fluid. Limited T2 sequences through the abdomen demonstrates no bulky adenopathy, significant free fluid or abscess. IMPRESSION: Cholelithiasis is seen with distended gallbladder and mild pericholecystic fluid suspicious for acute cholecystitis. Common bile duct is normal caliber. No common duct stone seen. Laparoscopic cholecystectomy (05/14): by Dr. Bravo Problem List Acute cholecystitis with cholelithiasis s/p laparoscopic cholecystectomy (05/14) Hypertension GERD Brief History of Present Illness: 50-year-old male with history of hypertension, GERD presents emergency [place] for abdominal pain. Patient reports pain started this morning, patient evaluated the emergency department lab significant for white blood cell count 16 GFR 75 glucose [address] abdomen pelvis with multistone cholelithiasis with distended but nondilated gallbladder, gallbladder wall edema and trace pericholecystic fluid present. Ultrasound confirms this but as CBD dilatation. Case was discussed with general surgery who recommends n.p.o., antibiotics, MRCP Hospital Course: Patient underwent laparoscopic cholecystectomy without any complications. He was noted to have inflamed gallbladder, and underwent MAYNOR drain placement. Postoperative course was uncomplicated. He had resolution of his leukocytosis, and improvement with pain medication. On day of discharge he was tolerating p.o., ambulating, passing flatus. He was discharged home with antibiotics and pain medication per general surgery. He is to follow-up with general surgery in 1 week. Vital Signs/Physical Exam: Physical exam GEN: NAD, AAOx3 HEENT: Normal conjunctiva, sclera anicteric CV: Regular rate and rhythm, no murmur Pulm: Clear to auscultation bilaterally, nonlabored on room air Abdomen: Mild tenderness to palpation in the right upper quadrant. MAYNOR drain removed Temp Pulse Resp BP Pulse Ox 97.9 F 72 18 145/84 H 93 05/16/21 08:05 05/16/21 08:05 05/16/21 08:05 05/16/21 08:05 05/16/21 08:05 Laboratory Data at Discharge: WBC 9.60 K/uL (4.3-10.9) D 05/16/21 05:27 Hgb 12.4 g/dL (13.6-17.9) L 05/16/21 05:27 Hct 35.8 % (39.6-49.0) L 05/16/21 05:27 Plt Count 218 K/uL (152-406) 05/16/21 05:27 Sodium 145 mmol/L (136-145) 05/16/21 05:27 Potassium 3.6 mmol/L (3.5-5.1) 05/16/21 05:27 BUN 15 mg/dL (7-18) 05/16/21 05:27 Creatinine 0.81 mg/dL (0.55-1.3) 05/16/21 05:27 Glucose 92 mg/dL (74-106) 05/16/21 05:27 Phosphorus 2.2 mg/dL (2.5-4.9) L 05/15/21 05:59 Magnesium 1.9 mg/dL (1.8-2.4) 05/16/21 05:27 Total Bilirubin 0.6 mg/dL (0.2-1.0) 05/16/21 05:27 AST 36 U/L (15-37) 05/16/21 05:27 ALT 77 U/L (12-78) 05/16/21 05:27 Alkaline Phosphatase 69 U/L (45-117) 05/16/21 05:27 Lipase 60 U/L (73-393) L 05/12/21 20:50 Home Medications: Amlodipine [Norvasc] 2.5 mg PO DAILY 05/14/21 Pantoprazole [Protonix Tab*] 1 tab PO DAILY 05/14/21 Valsartan [Diovan] 320 mg PO DAILY 05/14/21 Physician Discharge Instructions: PROBLEM: Acute Cholecystitis GOAL: Clear understanding of disease process INSTRUCTIONS: Diet: Regular Activity: No lifting more than 10 lbs If your symptoms worsen call 911 or go to the ED. May shower in am Keep wound clean and dry Gauze to wound daily Follow up with Dr. Bravo as instructed. Diet: Regular Activity: No lifting more than 10 lbs Followup: Marlon Bravo MD [ACTIVE - CAN ADMIT] - 1 Week (Call office to make an appointment. ) Dyaln Dolan MD [Primary Care Provider] - Time spent managing pt's care (in minutes): 40
== END 2021-05-16 11:46 | disposition home or self-care (01) | DRG 419 ==
LOC: ER 19:54 → ERHOLD 05-13 01:29 → OBSVTOIN 05-13 12:39 → 2ND 05-14 10:53
PROVIDERS: ADMIT Hospitalist; ATTEND Hospitalist
PROC: 0FT44ZZ Resection of Gallbladder, Percutaneous Endoscopic Approach (ICD-10-PCS; principal; 2021-05-14 07:00)
DX: K80.00 Calculus of gallbladder with acute cholecystitis without obstruction (principal); I10 Essential (primary) hypertension; K21.9 Gastro-esophageal reflux disease without esophagitis; Z20.822 Contact with and (suspected) exposure to COVID-19
CPT/HCPCS: 36415; 74177; 74181; 76705; 80048; 80053; 80076; 81003; 81015; 83690; 83735; 84100; 85025; 87086; 87088; 88304; 94010; 99283; C9113; G0378; J1100; J1170; J2250; J2270; J2405; J2543; J2704; J2710; J3010; J7030; J7120; Q9967; U0003